=== PATIENT | male | born 1965 | race Two or more races ===

== ENCOUNTER 2023-10-04 04:52 | Day surgery (SDC) | payer OTHER ==
[2023-09-27 12:21] VITALS: BMI 30.1
[2023-10-04] MEDS ORDERED: LIDOCAINE HCL 2% JELLY 11 ML TP ONE (10:47)
[2023-10-04] MEDS ORDERED: KETOROLAC TROMETHAMINE 30 MG/1 ML VIAL ONE (11:09)
[2023-10-04] MEDS ORDERED: VASopressin 20 UNITS/ML VIAL IV ONE (11:24)
[2023-10-04 12:17] VITALS: TEMP 98.2
[2023-10-04 12:24] VITALS: BP 136/82; PULSE 77; RESP 15
== END 2023-10-04 12:20 | disposition home or self-care (01) ==
LOC: JASU-ENDO 04:52
PROVIDERS: ATTEND Internal Medicine Gastroenterology
PROC: 06LY8CC Occlusion of Hemorrhoidal Plexus with Extraluminal Device, Via Natural or Artificial Opening Endoscopic (ICD-10-PCS; principal; 2023-10-04 11:30)
DX: K64.3 Fourth degree hemorrhoids (principal); K57.30 Diverticulosis of large intestine without perforation or abscess without bleeding
CPT/HCPCS: 82962